=== PATIENT | female | born 1940 | race Caucasian/White ===

== ENCOUNTER 2016-08-25 12:30 | Inpatient (IN) | payer MEDICARE, OTHER ==
[~2016-08-25] VITALS: Ht 165.1 cm; Wt 53.6 kg
[~2016-08-25 12:30] MED LIST: HYDROCHLOROTHIA25 M1 PO; LORTAB 7.5/3251 TAB PO; LOVASTATIN40 MG PO; METOPROLOL 25 M25 MG PO; METOPROLOL TARTRATE PO; PERCOCET 5/3251 EACH PO; PHENERGAN12.5 M3 PO; SYNTHROID 0.1M0.1 MG PO; ZOFRAN ODT4 MG PO
--- NOTE | 2016-08-25 12:52 | RADIOLOGY REPORT PS360 ---
CHEST-SPECIAL VIEWS:DECUBITUS CLINICAL INDICATION: COUGH, HYPOXEMIA COMPARISON: 04/11/2014 FINDINGS: Unremarkable cardiovascular structures. There is COPD with hyperinflation and attenuation of the peripheral pulmonary vessels. There are slight increased markings in the left lower lobe which may be due to superimposed pneumonia/peribronchial inflammatory change. Upper lobes are clear. There are old right-sided rib fractures. IMPRESSION: Obstructive chronic bronchitis with suspected superimposed pneumonia in the left lower lobe
[2016-08-25] MEDS ORDERED: ZITHROMAX Z PA250 MG PO (13:57)
[2016-08-25] MEDS ORDERED: METOPROLOL SUCC50 M1 PO (13:57)
[2016-08-25] MEDS ORDERED: MEDROL 4MG. DOSE4 MG PO (13:57)
[2016-08-25] MEDS ORDERED: SYNTHROID 0.0.075 MG PO (13:57)
[2016-08-25 14:09] VITALS: BP 164/86
[2016-08-25 14:11] VITALS: BP 164/86
[2016-08-25 14:12] LABS: BUN 31 mg/dL (7-18); GFR (ESTIMATED) 37 ML/MIN (59-)
[2016-08-25 15:42] VITALS: BP 139/88
--- NOTE | 2016-08-25 15:52 | HISTORY AND PHYSICAL REPORT ---
History and Physical ([facility]) Date of admission: 08/25/16 Chief complaint: cough, SOA History: History of Present Illness: Ms. Brunner is a 76yo female who has been treated on an outpatient basis for bronchitis with a medrol dosepack and a Z-pack. She returned to the office today still coughing and SOA. Her oxygen was in the 70's at the office and she was felt to have a pneumonia. She was directly admitted for pneumonia after failing outpatient therapy. Past Medical History: Medical History: CAD? No Angina: No GA: No Hypertension? Yes Hyperlipidemia? Yes CHF? No DVT? No PE? No COPD? No Asthma? No Anemia? No GERD? No Gastric ulcers? No Hernia? No Thyroid Problems? Yes Hypothyroidism? Yes CVA? No Seizures? No Diabetes? No Renal Insuffiency? No UTI? Yes Stones? No GB Disease: No Hepatitis? No Cataracts? No Glaucoma? No MRSA? No TB? No Cancer? Yes Site: SKIN, OVARIAN Surgical history: Previous Surgery?Y 1. IMPACTED TOOTH EXTRACTION 2. SKIN CA REMOVED 3. HYSTERECTOMY 4. APPENDECTOMY Medications: Reported Medications Levothyroxine Sodium (Synthroid 0.075MG) 0.075 MG PO DAILY Azithromycin (Zithromycin (Z-ARCHIE) 250MG Tab) 250 MG PO DAILY Methylprednisolone (Medrol Dose Archie) 4 MG PO UD Metoprolol Succinate Xl (Metoprolol ER 50MG) 50 MG PO DAILY Lovastatin 40 MG PO QHS HYDROCHLOROTHIAZIDE (Hydrochlorothiazide) 25 MG PO DAILY Allergies: Coded Allergies: codeine (NA-NAUSEA/VOMITING 05/27/16) Family History: Family history: Postive for: cancer. Negative for: CAD, DM, HTN, stroke. Social History: Smoking Hx Tobacco: No Smoker: Former Smoker Type: N/A Packs/day: N/A Are you exposed to second hand No Alcohol: Alcohol: No Hx of Drug Use: Drug Use? No Review of Systems: Constitutional Positive for: fatigue, lethargy, malaise, weak. ENT No: nasal congestion, sore throat. Cardiovascular No: chest pain, edema, palpitations. Respiratory Positive for: dyspnea on exertion, shortness of air, wheezing. No: productive cough (sputum). GI Positive for: nausea. No: abdominal pain, diarrhea, vomitting. (female) No: frequency, hematuria. Neurological Positive for: weakness. No: confusion, dizziness, syncope. Musculoskeletal No: extremity pain, joint pain, myalgias. Physical Exam: Vital signs: Vital Signs Result Date Time Pulse Ox 89 08/25 1409 O2 Delivery OXYGEN 08/25 1409 B/P 164/86 08/25 1409 Temp 97.7 08/25 1409 Pulse 89 08/25 1409 Resp 20 08/25 1409 O2 Flow Rate 2 08/25 1542 Exam: General appearance: alert, awake, no acute distress Eyes: EOM's w/normal ROM, PERRLA ENT: nose normal, pharynx normal, dry mucous membranes Neck: non-tender, full range of motion, supple Cardiovascular: regular rate & rhythm Respiratory: rales in the left base and wheezing throughout ABD: non-distended, normal bowel sounds, no rebound, soft, no tenderness, no guarding Extremities: no peripheral edema Musculoskeletal: equal muscle strength, motor intact, sensation intact Skin: fingers were cyanotic Neuro: normal mood/affect, oriented, speech clear Lab data: Labs: Laboratory Tests 08/25/16 1355: Sodium 139, Potassium 3.7, Chloride 97 L, Carbon Dioxide 38 H, BUN 31 H, Creatinine 1.4 H, Estimated GFR (MDRD) 37 L, Glucose 138 H, Calcium 9.2, Mycoplasma pneumon IgM NON-REACTIVE Microbiology 08/25 1354 BLOOD: Anaerobic Blood Culture - RECD 08/25 135 BLOOD: Aerobic Blood Culture - RECD 08/25 1354 BLOOD: Anaerobic Blood Culture - RECD 08/25 1354 BLOOD: Aerobic Blood Culture - RECD Radiology results: Results: CXR IMPRESSION: Obstructive chronic bronchitis with suspected superimposed pneumonia in the left lower lobe Diagnosis(es): 1. Pneumonia Status: Acute 2. Hypoxia Status: Acute 3. Renal insufficiency Status: Acute 4. Hypertension Status: Chronic 5. Hypothyroid Status: Chronic Plan: Pt has been started on abx, steroids, and nebs. Will await sputum cx. (Flor Mckeon) Date of admission: 08/25/16 Diagnosis(es): 1. Pneumonia Status: Acute 2. Hypoxia Status: Acute 3. Renal insufficiency Status: Acute 4. Hypertension Status: Chronic 5. Hypothyroid Status: Chronic 6. Hx of ovarian cancer Plan: Concur with above assessment and plan. (Whit Vang MD) at 1552 at [phone]
[2016-08-25 16:26] LABS: HEMOGLOBIN 16.4 g/dL (12.2-16.2); LYMPH # 1.5 K/mm3 (0.7-4.5); LYMPH % 18.2 % (10-50.0)
[2016-08-25 19:21] VITALS: BP 143/80
[2016-08-25 20:06] VITALS: BP 143/80
--- NOTE | 2016-08-25 21:07 | PHARMACY CLINIC NOTE ---
Patient Demographics Patient Demographics Admission date: 08/25/16 Date: 08/25/16 Time: 2105 Allergies Coded Allergies: codeine (NA-NAUSEA/VOMITING 05/27/16) HEIGHT- FT: 5 IN: 5.00 K.581 VTE General Information Labs: Laboratory Tests 08/25 1355 Hematology Hgb (12.2 - 16.2 g/dL) 16.4 H Hct (37.0 - 47.0 %) 50.5 H Plt Count (142 - 424 K/mm3) 246 Disclaimer The following section includes nursing documentation that has been pulled in for pharmacy review. Patient's VTE score: 3 Patient's VTE Risk: LOW RISK Clinical trial participant? No VTE prophylaxis [id number] VTE prophylaxis ordered? Yes Type of prophylaxis/treatment: CATY at 2106
[2016-08-25 23:52] VITALS: BP 145/83
[2016-08-26] VITALS (8 sets, daily range): BP systolic 121–134; BP diastolic 69–77
[2016-08-26 06:43] LABS: LYMPH # 2.1 K/mm3 (0.7-4.5)
[2016-08-26 06:54] LABS: HEMOGLOBIN 14.4 g/dL (12.2-16.2)
--- NOTE | 2016-08-26 08:13 | ACUTE CARE PROGRESS NOTE (QUA) ---
Progress Notes Subjective Date 08/26/16 Time 0810 Note Pt states she is feeling better today. She does not want to cough up a sputum sample because it makes her nauseated. Less wheezing. Less SOA. Denies any pain. Did not rest d/t neb tx's. Objective Findings Last VS-Temp:97.9 B/P:121/71 Pulse:82 Resp:18 SaO2:86 OXYGEN Last weight lbs:118 oz:2 K.581 Method:Bed Scales Laboratory Tests 08/26/16 0610: WBC 7.2, RBC 4.16 L, Hgb 14.4, Hct 43.5, MCV 104.4 H, RDW 13.6, Plt Count 233, MPV 8.7, Gran % 62.6, Gran # 4.5, Lymphocytes % 29.0, Monocytes % 7.2, Eosinophils % 0.5, Basophils % 0.6, Lymphocytes # 2.1, Monocytes # 0.5, Eosinophils # 0.0, Basophils # 0.1, PUBS MCHC 33.0, MCH 34.4 H 08/25/16 1355: Sodium 139, Potassium 3.7, Chloride 97 L, Carbon Dioxide 38 H, BUN 31 H, Creatinine 1.4 H, Estimated GFR (MDRD) 37 L, Glucose 138 H, Calcium 9.2, WBC 8.3, RBC 4.81, Hgb 16.4 H, Hct 50.5 H, MCV 105.0 H, RDW 14.1, Plt Count 246, MPV 10.0, Gran % 74.5, Gran # 6.2, Lymphocytes % 18.2, Monocytes % 6.6, Eosinophils % 0.1, Basophils % 0.6, Lymphocytes # 1.5, Monocytes # 0.6, Eosinophils # 0.0, Basophils # 0.1, PUBS MCHC 32.6, MCH 34.2 H, Mycoplasma pneumon IgM NON-REACTIVE Microbiology 08/25 1354 BLOOD: Anaerobic Blood Culture - RECD 08/25 1354 BLOOD: Aerobic Blood Culture - RECD 08/25 1354 BLOOD: Anaerobic Blood Culture - RECD 08/25 1354 BLOOD: Aerobic Blood Culture - RECD Exam General appearance: alert, awake, no acute distress Cardiovascular: regular rate & rhythm Respiratory: LLL and RUL rales, much less wheezing ABD: non-distended, normal bowel sounds, no rebound, soft, no tenderness, no guarding Extremities: no peripheral edema Assessment/Plan Problem List 1. Pneumonia Status: Acute 2. Hypoxia Status: Acute 3. Renal insufficiency Status: Acute 4. Hypertension Status: Chronic 5. Hypothyroid Status: Chronic 6. Hx of ovarian cancer Plan: Will continue current treatment. May need a repeat x-ray today or tomorrow. This inpt stay is expected to cross 2 MNs from start of care Yes (Flor Mckeon) Subjective Date 08/26/16 Time 0832 Assessment/Plan Problem List 1. Pneumonia Status: Acute 2. Hypoxia Status: Acute 3. Renal insufficiency Status: Acute 4. Hypertension Status: Chronic 5. Hypothyroid Status: Chronic 6. Hx of ovarian cancer Plan: Pt seen and examined. Concur with above. She is more comfortable with her breathing this AM. Encouraged OOB today. (Whit Vang MD) at 0812 at 0833
[2016-08-27 03:38] VITALS: BP 118/71
[2016-08-27 08:04] VITALS: BP 111/57
--- NOTE | 2016-08-27 08:22 | ACUTE CARE PROGRESS NOTE (QUA) ---
Progress Notes Subjective Date 08/27/16 Time 0821 Note Pt feeling better this am. Still coughing. Still SOA with exertion. Denies any pain. Objective Findings Last VS-Temp:98.3 B/P:111/57 Pulse:80 Resp:18 SaO2:92 OXYGEN Last weight lbs:118 oz:2 K.581 Method:Bed Scales Exam General appearance: alert, awake, no acute distress Cardiovascular: regular rate & rhythm Respiratory: rales RUL and RLL as well as the LLL, less wheezing ABD: non-distended, normal bowel sounds, no rebound, soft, no tenderness, no guarding Extremities: no peripheral edema Assessment/Plan Problem List 1. Pneumonia Status: Acute 2. Hypoxia Status: Acute 3. Renal insufficiency Status: Acute 4. Hypertension Status: Chronic 5. Hypothyroid Status: Chronic 6. Hx of ovarian cancer Plan: Will repeat a CXR and get labs tomorrow. Will check oxygen on RA today. This inpt stay is expected to cross 2 MNs from start of care Yes (Flor Mckeon) Subjective Date 08/27/16 Time 0834 Assessment/Plan Problem List 1. Pneumonia Status: Acute 2. Hypoxia Status: Acute 3. Renal insufficiency Status: Acute 4. Hypertension Status: Chronic 5. Hypothyroid Status: Chronic 6. Hx of ovarian cancer Plan: Pt seen and examined. Concur with above assessment and plan. (Whit Vang MD) at 0822 at 0835
--- NOTE | 2016-08-27 10:07 | RADIOLOGY REPORT PS360 ---
CHEST(2 VIEWS-NOT PORTABLE) HISTORY: pneumonia COMPARISON: 08/25/2016 FINDINGS: Changes from COPD once again noted. Normal heart size. Increased markings both lower lobes consistent with atelectasis or infiltrate slightly worse with small developing left effusion. IMPRESSION: Increasing bibasilar atelectasis or infiltrate with COPD and small left effusion
[2016-08-27 12:03] VITALS: BP 124/74
[2016-08-27 16:33] VITALS: BP 137/76
[2016-08-27 19:52] VITALS: BP 122/67
[2016-08-27 21:08] VITALS: BP 122/67
[2016-08-28] VITALS (7 sets, daily range): BP systolic 106–141; BP diastolic 68–86
[2016-08-28 07:01] LABS: HEMOGLOBIN 13.4 g/dL (12.2-16.2); LYMPH % 26.5 % (10-50.0)
--- NOTE | 2016-08-28 08:00 | ACUTE CARE PROGRESS NOTE (QUA) ---
Progress Notes Subjective Date 08/28/16 Time 0757 Note Rested better last night. Less cough. Appetite improving. Objective Findings Laboratory Tests 08/28/16 0605: Sodium 141, Potassium 4.2, Chloride 105, Carbon Dioxide 35 H, BUN 12, Creatinine 1.0, Estimated Creat Clear 41 L, Estimated GFR (MDRD) 54 L, Glucose 87, Calcium 8.3 L, WBC 7.4, RBC 3.93 L, Hgb 13.4, Hct 41.5, MCV 105.6 H, RDW 14.0, Plt Count 235, MPV 8.9, Gran % 63.7, Gran # 4.7, Lymphocytes % 26.5, Monocytes % 7.3, Eosinophils % 2.0, Basophils % 0.5, Lymphocytes # 2.0, Monocytes # 0.5, Eosinophils # 0.1, Basophils # 0.0, PUBS MCHC 32.4, MCH 34.2 H Last VS-Temp:97.4 B/P:119/71 Pulse:74 Resp:16 SaO2:93 OXYGEN Last weight lbs:118 oz:2 K.581 Method:Bed Scales Exam General appearance: alert, no acute distress Eyes: anicteric ENT: mucous membranes moist Cardiovascular: regular rate & rhythm Respiratory: clear to auscultation Extremities: no peripheral edema Skin: normal color Reviewed: medications, vital signs, lab results, nursing notes Assessment/Plan Problem List 1. Pneumonia Status: Acute 2. Hypoxia Status: Acute 3. Renal insufficiency Status: Acute 4. Hypertension Status: Chronic 5. Hypothyroid Status: Chronic 6. Hx of ovarian cancer Patient condition Improving Plan: Continue per orders. D/c IVFs. Wean O2. Possible d/c home tomorrow. This inpt stay is expected to cross 2 MNs from start of care Yes at 0800
[2016-08-29 04:10] VITALS: BP 131/78
[2016-08-29 07:38] VITALS: BP 139/72
--- NOTE | 2016-08-29 08:06 | ACUTE CARE PROGRESS NOTE (QUA) ---
Progress Notes Subjective Date 08/29/16 Time 0757 Note patient states that she is feeling better; SOB with exertion; was reported to her O2 sats in 70's at some time during the day; loud loose cough; cannot produce sputum; denies CP ; she is eating well; has ambulated in the room nursing states that this AM when off of O2 during the night her O2 sat was 79%; not documented as yet Objective Findings Vital Signs Date Time Temp Pulse Resp B/P Pulse O2 O2 Flow FiO2 Ox Delivery Rate 08/29 737 2 08/29 737 98.1 88 20 139/72 90 OXYGEN 2 08/29 637 2 08/29 0448 2 08/29 0548 91 2 08/29 0534 2 08/29 0504 2 08/29 0410 97.9 74 18 131/78 93 OXYGEN 2 08/29 0408 2 08/29 0331 2 08/29 0312 92 ROOM AIR 08/29 0159 2 08/29 0117 2 08/28 2306 2 08/28 215 2 08/28 2154 2 08/28 2011 98.6 83 16 141/82 94 OXYGEN 2 08/28 2010 2 08/28 2009 98.6 83 16 141/82 94 2 08/28 1849 2 08/28 1827 2 08/28 1800 2 08/28 1747 2 08/28 1636 2 08/28 1636 98.6 76 18 138/86 94 OXYGEN 2 08/28 1520 2 08/28 1400 2 08/28 1344 1.5 08/28 1159 1 08/28 1159 98.0 76 18 112/68 90 OXYGEN 1 08/28 1106 1 08/28 1019 2 08/28 0902 2 08/28 0902 97.8 81 18 106/76 90 2 08/28 0852 2 08/28 0851 97.8 81 18 106/76 90 ROOM AIR Current Medications Sodium Chloride 10 ML PRN PRN IV Levofloxacin/Dextrose 150 ML Q48H IV Levothyroxine Sodium 0.075 MG DAILY PO Metoprolol Succinate 50 MG DAILY PO Pravastatin Sodium 40 MG QHS PO Albuterol/Ipratropium 3 ML Q6H6 INH Sodium Chloride 10 ML PRN PRN IV Acetaminophen 650 MG Q4HP PRN PO Albuterol/Ipratropium 3 ML Q1HP PRN INH Guaifenesin/Dextromethorphan 10 ML Q4HP PRN PO Influenza Virus Vaccine Quadrival 0.5 ML PRN PRN IM Nicotine 21 MG DAILYP PRN TD Sodium Chloride 1,000 ML .Q20H IV (DC) 08/28 1500 08/28 2300 08/29 0700 Intake Total 480 240 220 Output Total Balance 480 240 220 Intake, Oral 480 240 220 Last VS-Temp:98.1 B/P:139/72 Pulse:88 Resp:20 SaO2:90 OXYGEN Last weight lbs:118 oz:2 K.581 Method:Bed Scales Exam General appearance: alert, active, no acute distress, well-developed, well- nourished, sitting in chair eating her breakfast Cardiovascular: regular rate & rhythm Respiratory: diminished BS posteriorly with faint wheezes on the right ABD: soft, no tenderness Extremities: calf tenderness, no pedal edema Neuro: alert, oriented Assessment/Plan Problem List 1. Pneumonia Status: Acute 2. Hypoxia Status: Acute 3. Renal insufficiency Status: Acute 4. Hypertension Status: Chronic 5. Hypothyroid Status: Chronic 6. Hx of ovarian cancer Patient condition Improved Plan: will discharge to home with O2 This inpt stay is expected to cross 2 MNs from start of care Yes (Oksana Crespo APRN) Subjective Date 08/29/16 Time 0805 Assessment/Plan Problem List 1. Pneumonia Status: Acute 2. Hypoxia Status: Acute 3. Renal insufficiency Status: Acute 4. Hypertension Status: Chronic 5. Hypothyroid Status: Chronic 6. Hx of ovarian cancer Plan: Pt seen and examined. Pnuemonia is improving but still hypoxic with activity. Will discharge home with continue Levaquin and will arrange for home O2. (Whit Vang MD) at 0841 at 1359
[2016-08-29] MEDS ORDERED: LEVAQUIN500 MG PO (08:25)
[2016-08-29 11:41] VITALS: BP 139/72
--- NOTE | 2016-09-01 13:45 | DISCHARGE SUMMARY STANDARD ---
Discharge Summary ([facility]2) Date of admission: 08/25/16 Date of discharge: 08/29/16 Problem List: 1. Pneumonia 2. Hypoxia 3. Renal insufficiency 4. Hypertension 5. Hypothyroid 6. Hx of ovarian cancer History of present illness: Ms. Brunner is a 76yo female who had been treated on an outpatient basis for bronchitis with a medrol dosepack and a Z-pack. She returned to the office still coughing and SOA. Her oxygen was in the 70's at the office and she was felt to have a pneumonia. She was directly admitted for pneumonia after failing outpatient therapy. Exam on admission: General appearance: alert, awake, no acute distress Eyes: EOM's w/normal ROM, PERRLA ENT: nose normal, pharynx normal, dry mucous membranes Neck: non-tender, full range of motion, supple Cardiovascular: regular rate & rhythm Respiratory: rales in the left base and wheezing throughout ABD: non-distended, normal bowel sounds, no rebound, soft, no tenderness, no guarding Extremities: no peripheral edema Musculoskeletal: equal muscle strength, motor intact, sensation intact Skin: fingers were cyanotic Neuro: normal mood/affect, oriented, speech clear Hospital Course: Patient was admitted and started on antibiotics, steroids, and nebs. She had a chest x-ray which showed a superimposed pneumonia in the LEFT lower lobe. She had a repeat chest x-ray on 08/27/16 showing an increased bibasilar atelectasis or infiltrate with chronic obstructive pulmonary disease and a small LEFT effusion. Her symptoms improved throughout her stay. The nurses tried to wean her off of her oxygen, however her sats would drop into the 70s. Her pneumonia and symptoms improved, however she was still hypoxic with any activity. She was stable to be discharged home on 08/29/16 on Levaquin and home oxygen was arranged. Discharge medications: Stop taking the following medications: Azithromycin (Zithromycin (Z-ARCHIE) 250MG Tab) 250 MG TABLET ORAL DAILY Methylprednisolone (Medrol Dose Archie) 21 TAB ACRHIE ORAL UD Continue taking these medications: Lovastatin (Lovastatin) 40 MG TABLET 40 MILLIGRAM ORAL AT BEDTIME NIGHTLY HYDROCHLOROTHIAZIDE (Hydrochlorothiazide) 25 MG TABLET 25 MILLIGRAM ORAL DAILY Levothyroxine Sodium (Synthroid 0.075MG) 75 MCG TABLET 0.075 MILLIGRAM ORAL DAILY Metoprolol Succinate Xl (Metoprolol ER 50MG) 50 MG TAB.ER.24H 50 MILLIGRAM ORAL DAILY Start taking the following new medications: Levofloxacin (Levaquin 500MG) 500 MG TABLET 500 MILLIGRAM ORAL DAILY Qty = 10 No Refills Disposition: F/U with: Whit Vang MD Follow up: 7 DAYS Comments, Specifics r/t O2, Equipment, Antibiotics, etc: O2 per NC at 2 liters/ minute Care Management Consult for: HOME O2 Activity: Cont Current activity Diet: Regular Discharge to: HOME Agency needed? N (Flor Mckeon) Problem List: 1. Pneumonia 2. Hypoxia 3. Renal insufficiency 4. Hypertension 5. Hypothyroid 6. Hx of ovarian cancer Disposition: Concur with above plans for discharge (Whit Vang MD) at 1344
== END 2016-08-29 11:55 | disposition home or self-care (01) | DRG 195 ==
LOC: RAD 12:30 → 2ND 13:11
PROVIDERS: Family Medicine
DX: J18.9 Pneumonia, unspecified organism (principal); I10 Essential (primary) hypertension; Z85.43 Personal history of malignant neoplasm of ovary

== ENCOUNTER → 2017-05-25 | Outpatient (CLI) | payer MEDICARE, OTHER ==
[~2017-05-25] MED LIST changes: +LEVAQUIN500 MG PO; +MEDROL 4MG. DOSE4 MG PO; +METOPROLOL SUCC50 M1 PO; +SYNTHROID 0.0.075 MG PO; +ZITHROMAX Z PA250 MG PO
--- NOTE | 2017-05-25 12:58 | RADIOLOGY REPORT PS360 ---
BONE DENSITOMETRY(HIP:LT SPINE COMPARISON: None HISTORY: Patient is postmenopausal TECHNIQUE: DEXA scanning lumbar spine and both hips FINDINGS: The areas BMD lumbar spine L1-L4 is 1.082 g/sq cm and T score is -0.8. However the is very marked focal degenerative disc disease at the L2-3 level which could possibly skew the BMD values somewhat. The total BMD left hip is 0.637 g centimeters square with T score of -2.9 and the total T score of the right hip is -2.9. The left femoral neck is 0.738 g centimeters square with a T score of -2.2 and the right femoral neck is 0.727 g centimeters square with a T score -2.2. IMPRESSION: T score the normal range lumbar spine the see discussion above, T scores in the mild osteoporosis range for both hips. Consider follow-up study in one to 2 years
--- NOTE | 2017-05-30 11:19 | RADIOLOGY REPORT PS360 ---
DIG MAMM-SCREEN CHASE W/CAD CAD Screening COMPARISON: Digital mammograms 05/20/2015 and 05/23/2016 INDICATION: Is no personal or family history of breast cancer TECHNIQUE: Standard CC and MLO images were obtained. R2 CAD reviewed. FINDINGS: Mild to moderate scattered fibroglandular densities are seen in the central portions of both breast. Again noted are multiple markers on each breast. There is a benign-appearing calcification right breast. There is no suspicious lesion and there are no suspicious microcalcifications. IMPRESSION: Stable exam with no suspicious lesion seen recommend yearly follow-up BI-RADS CATEGORY: 2_Benign RECOMMENDED FOLLOWUP: 12M 12 MONTH FOLLOW-UP (A letter has been sent to the patient regarding results of the study.)
== END ==
LOC: RAD 08:53
DX: Z12.31 Encounter for screening mammogram for malignant neoplasm of breast (principal); Z78.0 Asymptomatic menopausal state; Z13.820 Encounter for screening for osteoporosis
CPT/HCPCS: G0202